=== PATIENT | male | born 1985 | race Caucasian/White ===

== ENCOUNTER 2021-02-20 18:39 | Emergency (ER) | payer BC, SELFPAY ==
--- NOTE | ~2021-02-20 | XR_ITS ---
EXAMINATION: XR ANKLE, LEFT CLINICAL INFORMATION: Injury and pain COMPARISON: None TECHNIQUE: AP, lateral, and mortise views of the left ankle. FINDINGS: No significant soft tissue swelling. Bones are normal anatomic alignment with no dislocation seen. Ankle mortise appears grossly intact. Tiny ossification along the distal dorsal aspect of the talus near the talonavicular joint seen only on the lateral film. Subtle avulsion injury in this location cannot be excluded. Would clinically correlate for point tenderness in this location. XR/XR ankle LT min 3V IMPRESSION: Subtle ossification along the dorsal aspect of the distal talus at the talonavicular joint space. Would clinically correlate for point tenderness in this location. Subtle avulsion injury would be suspected.
[2021-02-20 18:44] VITALS: BP 121/78; PULSE 81; RESP 18; TEMP 36.3; O2SAT 96; BMI 29.2
--- NOTE | 2021-02-20 20:28 | ED.EXTPRO ---
HPI - Extremity Problem General Chief complaint: Extremity Injury, Upper Stated complaint: Fall/Hand and ankle injury Time Seen by Provider: 02/20/21 19:55 Source: patient Mode of arrival: ambulatory Limitations: no limitations History of Present Illness HPI Narrative: 35-year-old male presents to ED for right palm laceration and also left ankle pain. Patient states he was trying to break a fall a basement and she got cut in his right hand by a nail on the wall and twisted left ankle. Patient denies falling to the ground hitting head. Patient denies any loss of consciousness. Patient denies any blunt trauma to the torso or abdomen. Patient states hearing crunching pain in left ankle. Related Data Previous Rx's Medication Instructions Recorded cephalexin 500 mg capsule 500 mg PO QID #28 cap 02/20/21 naproxen 500 mg tablet 500 mg PO BID PRN 10 Days #20 tab 02/20/21 Allergies Allergy/AdvReac Type Severity Reaction Status Date / Time No Known Allergies Allergy Verified 02/20/21 18:43 Review of Systems Review of Systems: Yes all other systems are reviewed and are negative Constitutional: Constitutional: Reports as per HPI and Reports no additional constitutional complaints Eyes: Eyes: Reports as per HPI and Reports no additional eye complaints ENT: Reports system reviewed and no additional complaints, except as documented and Reports as per HPI Cardiovascular: Cardiovascular: Reports as per HPI and Reports no additional cardiovascular complaints Respiratory: Respiratory: Reports as per HPI and Reports no additional respiratory complaints Gastrointestinal: Gastrointestinal: Reports as per HPI and Reports no additional gastrointestinal complaints Genitourinary: Genitourinary: Reports no additional male genitourinary complaints and Reports as per HPI Musculoskeletal: Musculoskeletal: Reports no additional musculoskeletal complaints and Reports as per HPI Comments: Right palm laceration Neurologic: Reports system reviewed and no additional complaints, except as documented and Reports as per HPI Psychiatric: Psychiatric: Reports no additional psychiatric complaints and Reports as per HPI Endocrine: Endocrine: Reports no additional endocrine complaints and Reports as per HPI [facility] Social History Social History Advance Directives: No Advance Directives Information Provided: Yes Physical Exam Vital Signs: Vital Signs: Last Vital Signs Temp 97.4 F 02/20/21 18:44 Pulse 81 02/20/21 18:44 Resp 18 02/20/21 18:44 BP 121/78 02/20/21 18:44 Pulse Ox 96 02/20/21 18:44 Body Mass Index 29.2 Const: General: cooperative, healthy appearing, comfortable, no acute distress, well developed, alert, awake and Physically active Orientation/consciousness: patient oriented x3 HENMT: Head: Yes normal to inspection, Yes No palpable skull fracture present, Yes normocephalic, Yes atraumatic and No abrasion Eyes: General: appearance normal, both eyes and all related structures Neck: Neck: Yes normal visual inspection, Yes full ROM, Yes no lymphadenopathy, Yes no meningeal signs, Yes trachea midline, Yes supple, No anterior neck swelling and No tender Chest: Chest palpation & inspection: normal inspection of the chest and normal palpation of entire chest wall Resp: Effort & Inspection: normal respiratory effort and able to speak in complete sentences Auscultation: clear to auscultation bilaterally Cardio: Jugular venous distension: no JVD Heart sounds: S1 normal heart sound present and S2 normal heart sound present GI: Inspection: Yes normal to inspection and No abdominal wall ecchymosis Palpation (GI): Soft to palpation, not firm, nontender, no guarding and not rigid : General: No CVA tenderness and Yes no CVA tenderness Back/Spine/Pelvis: Back: no CVA tenderness, No CVA tenderness and No back tenderness Skin: General skin exam: no rashes or lesions noted and elasticity normal Neuro: General: patient oriented x3, gait normal, no meningeal signs and CN's II-XI intact bilaterally Cranial nerves: Yes CN's II-XII intact bilaterally Extrem: Hand/finger images: 1. Patient has laceration. Patient has complete range of motion of hand. Motor, neuro, and vascular exam is intact. Upper/lower leg/hip images: 1. Talus tenderness on palpation. Negative for ecchymosis or swelling. Motor/neuro/medical exam intact. Achilles tendon intact Psych: Appearance: grossly normal, well kempt and not disheveled Course Course Course Narrative: Patient sent for x-ray Reevaluation(s) Reevaluation #1: Ankle x-ray shows talus fracture. Patient placed walking boot. Right palm wound clean with sterile saline. 5 mL of 2% lidocaine used to anesthetize wound size 3 nylon sutures used for repair. Four sutures were placed. Patient will be discharged with antibiotics. Tdap ordered. Time: 21:53 MDM - Extremity (Nontraumatic) MDM Narrative Medical decision making narrative: Talus fracture and laceration repair. Discharge Plan Discharge Clinical Impression: Avulsion fracture of left talus, Laceration of hand Patient Disposition: Home, Self-Care Instructions: Laceration (ED), Talar Fracture in Adults (ED) Additional Instructions: Sutures should be removed in 9 days. You were placed in walking boot. You need to follow-up with orthopedic surgeon. Return to the ED immediately for swelling, redness, pus discharge, foul odor, fever, chills, blue blood discoloration, coldness of extremity, hardness, calf pain, or any other concerning symptoms. Prescriptions: New cephalexin 500 mg capsule 500 mg PO QID Qty: 28 RF: 0 naproxen 500 mg tablet 500 mg PO BID PRN (Reason: pain) 10 Days Qty: 20 RF: 0 Referrals: Shane Alfaro MD [Physician] - 2 days (Left talus avulsion fracture) Stand Alone Forms: Work/School Release Interventions: ED Discharge Assessment Last Done: 02/20/21 22:32 Discharge Date/Time: 02/20/21 22:44 Print Language: Iranian
[2021-02-20] MEDS: Diphth,Pertus(ACell),Tet Adult 0.5 ML SYRINGE IM (21:47)
[2021-02-20] MEDS: Lidocaine HCl 2 % MPF 5 ML VIAL INFILTRATI ×2 (21:50)
[2021-02-20] MEDS: cephALEXin 500 MG CAPSULE PO (22:04)
--- NOTE | 2021-02-20 22:32 | PC.NURSE ---
LAC TO RIGHT HAND CLEANED AND SUTURED BY MATEO DUARTE. DSD APPLIED.
== END 2021-02-20 22:44 | disposition home or self-care (01) ==
PROVIDERS: Emergency Provider Internal Medicine; PCP Internal Medicine
DX: S92.152A Displaced avulsion fracture (chip fracture) of left talus, initial encounter for closed fracture (principal); S61.411A Laceration without foreign body of right hand, initial encounter; W45.0XXA Nail entering through skin, initial encounter; Y93.89 Activity, other specified; Y92.018 Other place in single-family (private) house as the place of occurrence of the external cause; Y99.9 Unspecified external cause status
CPT/HCPCS: 12002; 73610; 90471; 90715; 99284

== ENCOUNTER 2021-03-01 16:15 | Emergency (ER) | payer BC, SELFPAY ==
[2021-03-01 16:19] VITALS: BP 114/76; PULSE 77; RESP 18; TEMP 36.2; O2SAT 98; BMI 29.2
--- NOTE | 2021-03-01 16:43 | ED.GENADULT ---
HPI - General Adult General Chief complaint: General Medical Stated complaint: suture removal Time Seen by Provider: 03/01/21 16:25 Source: patient Mode of arrival: ambulatory Limitations: no limitations History of Present Illness HPI narrative: Patient comes emergency room for stitches removal. Nine days ago patient had a fall, had a laceration to his left hand on the palm. Patient states it has been healing well. Patient also had a talus fracture on that day. Patient states that he no longer needs a walking boot since he has no pain walking, states that he has had Orthopedics follow-up. Patient denies any pus drainage from the hand injury, no redness, no pain, no fever or chills. Related Data Previous Rx's Medication Instructions Recorded cephalexin 500 mg capsule 500 mg PO QID #28 cap 02/20/21 naproxen 500 mg tablet 500 mg PO BID PRN 10 Days #20 tab 02/20/21 Allergies Allergy/AdvReac Type Severity Reaction Status Date / Time No Known Allergies Allergy Verified 02/20/21 18:43 Review of Systems Review of Systems: Constitutional : No Weight loss, No Fever, No Chills, No Night Sweats, No Fatigue, No Malaise ENT/Mouth : No Hearing loss, No Ear Pain, No Nasal Congestion, No Sinus Pain, No Hoarseness, No sore throat, No Rhinorrhea, No Swallowing Difficulty Eyes: No Eye Pain, No Swelling, No Redness, No Foreign Body, No Discharge, No Vision Changes Cardiovascular : No Chest Pain, No SOB, No Dyspnea on Exertion, No Orthopnea, No Edema, No Palpitations Respiratory : No Cough, No Sputum, No Wheezing, No Smoke Exposure, No Dyspnea Gastrointestinal : No Nausea, No Vomiting, No Diarrhea, No Constipation, No abdominal Pain, No Hematochezia, No Melena Genitourinary : no irregular bleeding, No Dysuria, No Urinary Frequency, No Hematuria, No Urinary Incontinence, No Urgency, No Flank Pain, No Urinary Flow Changes, No Hesitancy Musculoskeletal : No joint pain, No Myalgias, No Joint Swelling, no pain in the heels with standing or walking. Skin : Healing laceration to the left hand, No rash Neuro : No Weakness, No Numbness, No Paresthesias, No Loss of Consciousness, No Dizziness, No Headache Psych : No Anxiety/Panic, No Depression, No SI/HI/AH/VH, No Social Issues, Heme/Lymph: No Bruising, No Bleeding,No Lymphadenopathy Endocrine : No Polyuria, No Polydipsia, No Temperature Intolerance [facility] Social History Social History Advance Directives: No Advance Directives Information Provided: No Physical Exam Vital Signs: Vital Signs: Last Vital Signs Temp 97.1 F 03/01/21 16:19 Pulse 77 03/01/21 16:19 Resp 18 03/01/21 16:19 BP 114/76 03/01/21 16:19 Pulse Ox 98 03/01/21 16:19 Body Mass Index 29.2 Const: Other: Appearance: Alert. Oriented X3. No acute distress. Eyes: Pupils equal, round and reactive to light. ENT: Pharynx normal. Neck: Normal inspection. Neck supple. No lymph nodes noted. No crepitus CVS: Normal heart rate and rhythm. Pulses normal. Normal S1 and S2 Respiratory: No respiratory distress. Breath sounds normal. No Wheezing. No rales Abdomen: Soft and nontender. No rigidity. No distention. good BS x4 Skin: Skin warm and dry. Healed laceration to the left palm of the hand, no pus drainage, no erythema, no pain. Extremities: No lower extremity edema. No lower extremity edema. No Lacerations. No Rash Neuro: Oriented X 3. No motor deficit. No sensory deficit. Moving all extermities. No slurred speech. Course Course Course Narrative: Laceration healing well, does not need any antibiotics. Discharge Plan Discharge Clinical Impression: Encounter for removal of sutures Patient Disposition: Home, Self-Care Instructions: Stitches Removal (ED) Additional Instructions: Please follow-up with your primary care physician tomorrow. If you have any worsening or new symptoms, please return to the emergency room or call 911 Prescriptions: No Action cephalexin 500 mg capsule 500 mg PO QID Qty: 28 RF: 0 naproxen 500 mg tablet 500 mg PO BID PRN (Reason: pain) 10 Days Qty: 20 RF: 0
== END 2021-03-01 16:58 | disposition home or self-care (01) ==
PROVIDERS: Emergency Provider Emergency Medicine; PCP Internal Medicine
DX: Z48.02 Encounter for removal of sutures (principal)
CPT/HCPCS: 99283